=== PATIENT | female | born 1970 | race Caucasian/White ===

== ENCOUNTER 2023-10-05 16:21 | Emergency (ER) | payer OTHER, SELFPAY ==
[2023-10-05 16:28] VITALS: BP 169/89
[2023-10-05 17:07] VITALS: BMI 44.5
[2023-10-05 17:26] LABS: % Basophils 0.6 % (0-2); % Eosinophils 0.8 % (0-6); % Immature Granulocytes 0.4 % (0-0.5); % Lymphocytes 38.6 % (20.5-51.1); % Monocytes 5.2 % (1.7-9.3); % Neutrophils 54.4 % (42.2-75.2); Absolute Basophils 0.1 10^3/uL (0-0.2); Absolute Eosinophils 0.1 10^3/uL (0-0.7); Absolute Lymphocytes 3.3 10^3/uL (1.2-3.4); Absolute Monocytes 0.4 10^3/uL (0.1-0.6); Absolute Neutrophils 4.6 10^3/uL (1.4-6.5); Hematocrit 36.1 % (37.0-47.0); Hemoglobin 12.4 g/dL (12.0-16.0); Mean Corp Hgb Conc. 34.3 g/dL (33.0-37.0); Mean Corpuscular Hgb 28.6 pg (27.0-31.0); Mean Corpuscular Volume 83.2 fL (81.0-99.0); Mean Platelet Volume 9.9 fL (7.4-10.4); Nucleated Red Blood Cells % 0 %; Platelet Count 188 10^3/uL (130-400); Red Blood Cell Count 4.34 10^6/uL (4.20-5.40); White Blood Cell Count 8.5 10^3/uL (4.8-10.8)
--- NOTE | 2023-10-05 17:30 | ED.GENMED ---
History of Present Illness
General
Chief Complaint: Chest Pain
Source: patient
Exam Limitations: none
Time Seen by Provider: 10/05/23 17:20
Travel History
Have you had any contact with someone who has COVID-19?: No
Do you have any symptoms of coronavirus? Fever > 100 degrees, chills, cough, shortness of breath, sore throat, loss of taste or smell, muscle aches, or headache?: No
History of Present Illness
History of Present Illness:
See MDM
Past History
Past History
ED Past Medical History: Hypercholesterolemia, Psychiatric and Other (Chronic back pain, fibromyalgia, IBS, hypothyroidism)
ED Past Surgical History: Gynecological and Orthopedic
Social History
Tobacco: Former smoker
Alcohol: Occasional
Drug: None
Personal: Single
Living: with family
Employment: Disabled
Family History
Family History: Other (Noncontributory)
Phy Exam
Physical Exam
Physical Exam:
See MDM
Scores
Heart Score for Chest Pain Patients
STEMI patient?: No
History: Slightly or Non-Suspicious
ECG: Normal
Age: >45 - <65 years
Risk Factors: 1 or 2 Risk Factors
Troponin: </= Normal Limit
Heart Score for Chest Pain Patients: 2
Heart Score Risk: 2.5% MACE over next 6 weeks
Course
Orders/Labs/Results
Orders:
Orders
10/05/23 16:21
ECG [Electrocardiogram (*1)] Urgent
Reason for Study: Chest Pain
10/05/23 16:22
EKG- Treatment ONCE
10/05/23 17:16
Complete Blood Count/With Diff Urgent
Troponin I Urgent
10/05/23 18:05
Comprehensive Metabolic Panel Urgent
Comment: REDRAW
Abnormal Lab Results
10/05/23 10/05/23
17:16 18:05
Hct 36.1 L %
(37.0-47.0)
Creatinine 1.1 H mg/dL
(0.6-1.0)
Glucose 109 H mg/dl
(70-99)
Alkaline Phosphatase 131 H U/L
(38-126)
Total Protein 6.0 L g/dl
(6.3-8.2)
10/05/23 17:16
10/05/23 18:05
Vital Signs
Initial and Last Documented VS:
Initial Vital Signs
Resp
18
10/05/23 16:25
Last Documented Vital Signs
Temp Pulse Resp BP Pulse Ox
98.1 F 68 13 131/74 98
10/05/23 16:28 10/05/23 18:15 10/05/23 17:45 10/05/23 18:07 10/05/23 18:15
MDM/Problems Addressed
Differential Diagnosis Includes:
HPI and MDM Narrative:
52-year-old female presenting with 2 episodes of fleeting chest pain. This occurred a few hours ago. She was sitting in her recliner and she developed a sharp central chest pain. This lasted for only a few seconds. Few minutes later, it again
came and went just as quickly. No symptoms with exertion. 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 Aguayo. He ordered Holter monitor, stress test and echocardiogram. Patient does have
these test scheduled. She is currently symptom-free
On exam, heart regular rate and rhythm. Lungs clear. No leg edema. She is sitting in bed comfortably. We discussed the likelihood of a negative workup but discussed the importance of following up with her tests. Given no exertional component,
ACS is less likely
Physical exam
General: Well appearing and non-toxic
HEENT: protecting airway
Neck: appears supple
CV: No evidence of cyanosis. Regular rate and rhythm
Resp: No accessory muscle use. Lungs clear
Abd: Non-distended
Extremities: No deformities. No leg edema
Neuro: alert
Psych: Normal affect
Skin: Intact
Problems Addressed including Acute and Chronic Conditions affecting care:
1. Chest pain
Acuity: acute
Prognosis: stable
Details: Given no exertional component, doubt ACS. EKG is nonischemic. Patient currently symptom-free. Will obtain troponin
Updates
Troponin negative. Patient remains symptom-free. Discussed return precautions and obtaining the tests ordered by Dr. Aguayo
Differential Diagnosis (but not limited to): Noncardiac chest pain, gastritis, coronary artery spasm
Testing considered: Chest x-ray but she is symptom-free
Drug therapy (if applicable): OTC meds, please see d/c instruction regarding Rx drugs
Amount and/or Complexity of Data Reviewed
Clinical info obtained from: Patient
External data reviewed: N/A
Labs I independently reviewed (but not limited to): Troponin normal
Radiology: N/A
Pulse Ox: not hypoxic
EKG independently reviewed: Sinus rhythm, normal axis, no STEMI
Manuscripts Archivist: N/A
Critical Care: N/A
Risk of Complication:
Social Determinants of health: Good social support
Discussed with other providers: N/A
Escalation of Care includes Admit/Obs: After being observed in the Emergency Department, pt stable for discharge.
Occasional wrong word or 'sound a like' substitutions may have occurred due to the inherent limitations of voice recognition software. Read the chart carefully and recognize, using context, where substitutions have occurred.
*Critical Care Note
Total Time (30-74mins, 75-104mins- exclusive of procedures): Not Applicable
ED Attending Note
-
Portions of this chart may have been created with voice recognition software.� Occasional wrong word or��sound alike� substitutions may have occurred due to the inherent limitations of voice recognition software.
Discharge Plan
Departure
Patient Disposition: Home (Routine Discharge)
Date of Disposition: 10/05/23
Time of Disposition: 19:32
Patient with high blood pressure during this ER visit?: Yes
Discharge Problem:
Chest pain
Instructions: Chest Pain PCP Follow Up, BLOOD PRESSURE
Prescriptions:
No Action
lorazepam 1 MG tablet
1 mg PO PRN PRN (Reason: anxiety)
naproxen sodium [Aleve] 220 MG tablet
440 mg PO PRN PRN (Reason: pain)
Omeprazole Magnesium
1 tab PO DAILY
Patient Comments:
OTC
Tylenol Pm
1 tab PO PRN PRN (Reason: sleep)
Effexor
150 mg PO DAILY
Patient Comments:
not sure of dose
Atorvastatin
20 mg PO DAILY
Gabapentin
300 mg PO QID
venlafaxine [Effexor] 75 MG tablet
75 mg PO DAILY
risperidone [Risperdal] 3 MG tablet
0.5 mg PO BID
Referrals:
NONE,* [Family Provider] -
Activity Restrictions/Additional Instructions:
Please return for any worsening symptoms.
You may return at any time if you have further concerns.
Please follow up with your doctor at the first available appointment, preferably this week.
Thank you for choosing [facility].
Interventions
Interventions:
ED- Cardiac Assessment Last Done: 10/05/23 17:23
[2023-10-05 17:53] LABS: Troponin I < 0.012 ng/ml
[2023-10-05 18:07] VITALS: BP 131/74
[2023-10-05 18:25] LABS: ALT (SGPT) 22 U/L (0-35); AST (SGOT) 21 U/L (14-36); Albumin 3.5 g/dl (3.5-5.0); Alkaline Phosphatase 131 U/L (38-126); Blood Urea Nitrogen 9 mg/dl (7-17); Carbon Dioxide 28 mmol/L (22-30); Chloride 99 mmol/L (98-107); Estimated Creatinine Clearance 74 ml/min; Glucose 109 mg/dl (70-99); Potassium 4.4 mmol/L (3.5-5.1); Sodium 135 mmol/L (135-145); Total Bilirubin 0.6 mg/dl (0.2-1.3); eGFR 59.71
[2023-10-05 19:40] VITALS: BP 133/77
== END 2023-10-05 20:00 | disposition home or self-care (01) ==
LOC: EMR 16:21
PROVIDERS: Emergency Medicine; EMERGENCY PHYSICIAN Student in an Organized Health Care Education/Training Program
DX: R07.9 Chest pain, unspecified (principal); R00.2 Palpitations; E03.9 Hypothyroidism, unspecified; E78.00 Pure hypercholesterolemia, unspecified
CPT/HCPCS: 99284; 80053; 84484; 85025; 93005

== ENCOUNTER → 2023-10-20 13:41 | Outpatient (REF) | payer OTHER, SELFPAY | LOC: RCS 13:41 | PROVIDERS: ATTENDING PHYSICIAN Internal Medicine Cardiovascular Disease; FAMILY PHYSICIAN Family Medicine | DX: R07.2 Precordial pain (principal); R00.2 Palpitations; R06.09 Other forms of dyspnea | CPT/HCPCS: 93306; Q9950 ==

== ENCOUNTER → 2023-10-30 13:15 | Outpatient (REF) | payer OTHER, SELFPAY | LOC: RCS 13:15 | PROVIDERS: ATTENDING PHYSICIAN Internal Medicine Cardiovascular Disease; FAMILY PHYSICIAN Family Medicine | DX: R07.2 Precordial pain (principal); R00.2 Palpitations | CPT/HCPCS: 93017 ==

== ENCOUNTER → 2025-05-20 14:05 | Outpatient (REF) | payer OTHER, SELFPAY | LOC: HWRAD 14:05 | PROVIDERS: ATTENDING PHYSICIAN Specialist; FAMILY PHYSICIAN Family Medicine | DX: N18.31 Chronic kidney disease, stage 3a (principal) | CPT/HCPCS: 76775 ==